=== PATIENT | male | born 1960 | race Caucasian/White ===

== ENCOUNTER 2019-09-20 16:01 | Emergency (ER) | payer OTHER ==
[~2019-09-20] VITALS: Ht 175.3 cm; Wt 63.5 kg
[2019-09-20 16:10] VITALS: BP 131/80
[2019-09-20] MEDS ORDERED: Tetanus/Diptheria/Pertussis IM ONE (16:45)
--- NOTE | 2019-09-20 16:58 | Emergency Room Report ---
History of Present Illness General Chief Complaint: Animal Bite Source: Patient Present Illness HPI 59 YO presents to the ED c/o dog bite to the left thigh x 1 day. Patient reports he was at work when he was attacked by a pit bull. Patient reports that he for the most part avoided a bite from the dog however he did get some soft tissue. Patient denies bony tenderness or pain. He reports he is ambulatory. Patient reports bleeding has subsided at this time. He denies taking blood thinning medications. He states he is not up-to-date with his tetanus vaccine. Patient reports he did not irrigate the wound yet. Patient denies hitting his head having a loss of consciousness or having midline neck or back pain. He denies paresthesias. He reports 1/10 in severity pain. He reports the dog was someone's pet on his route. He does not know the specifics of the animals vaccination status. Allergies: Coded Allergies: No Known Allergies (Unverified , 09/20/19) COVID-19 Screening Contact w/high risk pt: No Experienced COVID-19 symptoms?: No COVID-19 Testing performed [employer]: No Patient History Past Medical History: see triage record Past Surgical History: none Pertinent Family History: none Reviewed Nursing Documentation: PMH: Agreed; PSxH: Agreed Nursing Documentation-PMH Past Medical History: No Stated History Review of Systems All Other Systems: negative except mentioned in HPI Physical Exam Vital Signs Date Time Temp Pulse Resp B/P (MAP) Pulse Ox O2 Delivery O2 Flow Rate FiO2 09/20/19 16:05 97.9 68 18 131/80 (97) 99 Sp02 EP Interpretation: reviewed, normal General Appearance: no apparent distress, alert, GCS 15, non-toxic Head: normocephalic, atraumatic Eyes: bilateral eye normal inspection, bilateral eye PERRL ENT: hearing grossly normal, normal voice Neck: full range of motion Respiratory: lungs clear, normal breath sounds, speaking full sentences Cardiovascular #1: regular rate, rhythm, normal capillary refill Musculoskeletal: back normal, normal range of motion, gait/station normal, non- tender Neurologic: alert, motor strength/tone normal, oriented x3, sensory intact, responsive, speech normal Psychiatric: judgement/insight normal Skin: Ecchymosis/Bruising - mild ecchymosis to localized area of the ST of the lateral aspect of the left thigh. There is a bite wound that is approx 1.5cm in length, not a deep puncture. no avulsion of the skin. not bleeding at this time. Medical Decision Making PA Attestation Dr. Stephen Is my supervising Physician whom patient management has been discussed with. Diagnostic Impression: Primary Impression: Dog bite of left thigh Qualified Codes: S71.152A - Open bite, left thigh, initial encounter; W54.0XXA - Bitten by dog, initial encounter ER Course 59 YO presents to the ED c/o dog bite to the left thigh x 1 day. Patient reports he was at work when he was attacked by a pit bull. Patient reports that he for the most part avoided a bite from the dog however he did get some soft tissue. Patient denies bony tenderness or pain. He reports he is ambulatory. Patient reports bleeding has subsided at this time. He denies taking blood thinning medications. He states he is not up-to-date with his tetanus vaccine. Patient reports he did not irrigate the wound yet. Patient denies hitting his head having a loss of consciousness or having midline neck or back pain. He denies paresthesias. He reports 1/10 in severity pain. He reports the dog was someone's pet on his route. He does not know the specifics of the animals vaccination status. Ddx considered but are not limited to Cellulitis, rabies, fracture, neurovascular compromise of extremity. Vital signs: are WNL, pt. is afebrile H&PE are most consistent with dog bite, mild infection. ORDERS: none required at this time, the diagnosis is clinical ED INTERVENTIONS: Tetanus vaccination is administered. -Wound is irrigated by RN. - Bacitracin is applied - Augmentin 875mg PO DISCHARGE: At this time pt. is stable for d/c to home. Will provide printed patient care instructions, and any necessary prescriptions. Care plan and follow up instructions have been discussed with the patient prior to discharge. Last Vital Signs Date Time Temp Pulse Resp B/P (MAP) Pulse Ox O2 Delivery O2 Flow Rate FiO2 09/20/19 16:10 97.9 18 131/80 99 09/20/19 16:05 68 Status: improved Disposition: HOME, SELF-CARE Condition: Stable Scripts Acetaminophen* (TYLENOL EXTRA STRENGTH*) 500 Mg Tablet 500 MG ORAL Q6H, #20 TAB 0 Refills Prov: Nalini Amador 09/20/19 Bacitracin (Bacitracin) 28.4 Gm Oint...g. 1 APPLIC TOPIC THREE TIMES A DAY, #28.3 GM Prov: Nalini Amador 09/20/19 Amoxicillin/Potassium Clav 875-125* (AUGMENTIN 875-125 TABLET*) 1 Each Tablet 1 TAB ORAL TWICE A DAY, #14 TAB Prov: Nalini Amador 09/20/19 Referrals: Sarbjit Madsen. [facility] Departure Forms: Return to Work Return to Work Date: Sep 23, 2019 Other Restrictions: May return Sooner if Symptoms have resolved. Return to Full Activity: Sep 27, 2019 Work Restrictions: No Heavy Lifting, No Prolonged Standing Patient Instructions: Animal Bite Additional Instructions: Take medications as directed. Follow up with a Primary Care Provider in 3-5 days, even if your symptoms have resolved. --Please review list of primary care clinics, if you do not already have a primary care provider Return sooner to ED if new symptoms occur, or current symptoms become worse. - Please note that this Emergency Department Report was dictated using [employer] hoist operator technology software, occasionally this can lead to erroneous entry secondary to interpretation by the dictation equipment. Nalini Amador Sep 20, 2019 16:58
[2019-09-20] MEDS ORDERED: Bacitracin Oint UD TOPIC ONE (17:15)
[2019-09-20] MEDS ORDERED: Augmentin 875mg Tab ORAL ONE (17:15)
[2019-09-20] MEDS ORDERED: TYLENOL EXTRA500 MG ORAL (17:19)
[2019-09-20] MEDS ORDERED: BACITRACIN15 GM TOPIC (17:19)
[2019-09-20] MEDS ORDERED: AUGMENTIN 875-1 EAC1 ORAL (17:19)
[2019-09-20 17:39] VITALS: BP 131/80
== END 2019-09-20 17:40 | disposition home or self-care (01) ==
LOC: EMR 16:15
DX: S71.152A Open bite, left thigh, initial encounter (principal); W54.0XXA Bitten by dog, initial encounter; Z23 Encounter for immunization; Z20.3 Contact with and (suspected) exposure to rabies
CPT/HCPCS: 90471; 90715; 99282